=== PATIENT | male | born 1950 | race Caucasian/White ===

== ENCOUNTER → 2016-07-04 | Outpatient (CLI) | payer OTHER ==
[2016-07-04 12:33] LABS: BLOOD UREA NITROGEN 20 mg/dl (7-18); BUN/CREATININE RATIO 16.8 (10-20); CALCIUM 9.3 mg/dl (8.5-10.1); CARBON DIOXIDE 28 mmol/L (21-32); CHLORIDE 107 mmol/L (98-107); GLUCOSE 91 mg/dl (70-99); POTASSIUM 4.4 mmol/L (3.5-5.1); SODIUM 142 mmol/L (136-145)
[2016-07-04 12:36] LABS: CHOLESTEROL 163 mg/dl (0-200); HDL CHOLESTEROL 54 mg/dl; LDL CHOLESTEROL CALCULATED 99 mg/dl; TRIGLYCERIDES 49 mg/dl (0-150); VERY LOW DENSITY LIPOPROT CALC 10 mg/dl
== END | disposition home or self-care (01) ==
LOC: C.LABBC 09:23
PROVIDERS: ATTEND Internal Medicine
DX: Z13.220 Encounter for screening for lipoid disorders (principal)

== ENCOUNTER → 2017-06-11 | Outpatient (CLI) | payer OTHER, MEDICARE ==
[2017-06-11 09:42] LABS: BLOOD UREA NITROGEN 18 mg/dl (7-18); CALCIUM 9.5 mg/dl (8.5-10.1); CARBON DIOXIDE 29 mmol/L (21-32); CREATININE 1.02 mg/dl (0.60-1.40); GLUCOSE 89 mg/dl (70-99); POTASSIUM 3.9 mmol/L (3.5-5.1); SODIUM 139 mmol/L (136-145)
[2017-06-11 09:47] LABS: CHOLESTEROL 178 mg/dl (0-200); LDL CHOLESTEROL CALCULATED 111 mg/dl
== END | disposition home or self-care (01) ==
LOC: C.LAB1850 07:47
PROVIDERS: ATTEND Internal Medicine
DX: Z13.1 Encounter for screening for diabetes mellitus (principal); Z12.5 Encounter for screening for malignant neoplasm of prostate; Z13.220 Encounter for screening for lipoid disorders

== ENCOUNTER 2022-03-25 08:10 | Observation (INO) ==
--- NOTE | 2022-03-11 14:19 | Anesthesiology Consultation ---
Date of Service March 11, 2022 Assessment & Plan (1) Encounter for pre-operative examination: Chart Review Chart Review: Acceptable Risk for Surgery and Patient seen in Pre Admission Testing Discussed with Dr. Pritchard. Pt currently scheduled as 23 hours observation. If surgeon decides to change patient to [facility], patient would be acceptable risk for TKA, pending patient is motivated, has good support and surgeon's office completes [facility] preop requirements. Per PAT appt on 03/11/22, patient denies any recent travel or large group activities. Pt is vaccinated for Covid. Will leave to surgeon's discretion if preop Covid testing needed. Educated on importance of using Covid precautions one week prior to surgery Patient seen by neurology 01/17/2022 = patient seen for concerns for Parkinson's disease. Patient is mildly bradykinetic hypophonic on examination and does have very mild rigidity. 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 At this point I do have some clinical suspicion for development of parkinsonian syndrome based on reported symptoms and subtle examination findings. Unable to provide a more specific diagnosis at this timehowever recommend brain MRI to rule out pressure hydrocephalus and evaluate for perhaps a more specific atrophy pattern that may be helpful diagnostically. No medications prescribed. Doubtful he has myasthenia gravis, ALS or cardiomyopathy. Follow-up in 6 months Teaching & Discussion Pre-Anesthesia Teaching/Discussion Notes: Instructed NPO after midnight before surgery,except medications with 15 cc of water. Medication instructions provided according to the PAT guidelines. History Surgery Operation Date: 03/25/22 10:40 Proposed Procedures p Right Total Knee Arthroplasty - Luis Sams MD Height/Weight Height: 6 ft Weight: 84.6 kg Allergies Allergy/AdvReac Type Severity Reaction Status Date / Time No Known Allergies Allergy Verified 03/05/22 09:52 Medications Home Medications Medication Instructions Recorded Confirmed Last Taken No Known Home Medications 08/20/21 03/05/22 Unknown Past Medical History Medical History Parkinsonism Last seen by neuro 12/2021- mild bradykinesia, hypophonia and very mild rigidity - follow up six months Sensorineural hearing loss of both ears No hearing aids Exercise / Class Metabolic Activity II 4-5 Yardwork/Stairs/Walk up hill (one flight of stairs - no chest pain or SOB) Past Family History Family History Mother Myocardial infarction Hypertension Coronary heart disease Dyslipidemia Obesity Father Alzheimer disease Grandfather (Maternal) Coronary heart disease Denies family history of Ovarian cancer Prostate cancer Breast cancer Lung cancer Colorectal cancer Stroke Past Surgical History Surgical History H/O hand surgery RIGHT H/O knee surgery LEFT H/O vasectomy History of colonoscopy History of oral surgery Hx of tonsillectomy Past Anesthesia History No Hx of Anesthesia Complications and No Family Hx of Anesthesia Complications History of PONV No Hx of PONV and No Hx of Motion Sickness Social History Smoking Status: Never smoker Do You Dip or Chew Tobacco: No Hx Alcohol Use: Yes Alcohol type: beer alcohol intake frequency: a few times a month Hx Substance Use: No substance use type: does not use Review of Systems Patient denies chest pain, shortness of breath, dyspnea on exertion, reflux, cough, wheezing, palpitations. No hx of seizures, stroke, [place], apnea/snoring. No hx of blood clots or blood transfusions Physical Exam Vital Signs VITALS BP 162/92 (pt states usually blood pressure well controlled- usually 120s/80s) P 56 TEMP 97.9 SP02 99% RESP 16 Constitutional no acute distress ENMT Mouth: no TMJ clicking Thyromental Distance: > or= 3.5 Finger Breadths (3.5) Mallampati Class: II Caps to top front teeth and to molar Neck + limited neck extension (mild) Respiratory normal respiratory effort; no respiratory distress Auscultation: lungs clear to auscultation bilaterally; no wheezes Cardiovascular Rate/Rhythm: regular rate and regular rhythm Heart Sounds: no murmur Vessels: no carotid bruit Musculoskeletal Spine: no pain with cervical ROM Extremities: extremities normal to inspection Psychiatric Orientation: alert Lab Results Anesthesia Preop Results Results Anesthesia Widget: WBC 5.48 K/ul (4.8-10.8) 03/11/22 Hgb 13.4 g/dl (14.0-18.0) L 03/11/22 Hct 40.7 % (40.1-51.0) 03/11/22 Plt 266 K/uL (130-400) 03/11/22 Na 140 mmol/L (136-145) 03/11/22 K 4.4 mmol/L (3.5-5.1) 03/11/22 Cl 108 mmol/L (98-107) H 03/11/22 CO2 28 mmol/L (21-32) 03/11/22 BUN 24 mg/dl (6-23) H 03/11/22 Creat 0.99 mg/dl (0.6-1.4) 03/11/22 Glucose Level 83 mg/dl (70-99(Fasting)) 03/11/22 PT 10.7 Seconds (9.0-12.0) 03/11/22 PTT 25.3 Seconds (21.0-31.0) 03/11/22 INR 1.0 (0.9-1.1) 03/11/22 Blood Type O Negative 03/11/22 Antibody Screen NEGATIVE 03/11/22 Testing Electrocardiogram Date: 03/11/22 Findings: + SB @ (53bpm ) LVH with repolarization abnormality Chest X-Ray Date: 03/11/22 Findings: + NAD Stress Test Date: 11/28/20 Type: exercise (ECHO ) Resting EF: 60% Resting LV Function: normal Resting RWMA: + none Negative exercise stress echocardiogram and EKG for ischemia at 76% MPHR. 13.7 METS achieved Normal BP response with exercise. No significant ectopy at rest and with exercise Resting echomild LVH. Mild left atrial dilation. Mild MR. Other Testing Brain MRI 02/24/22= No acute abnormality COVID-19 Risk Screen Screening Information COVID-19 Screen Date: 03/11/22 Exposure 21 Days Family/Household +COVID Last 21 Days: No Exposure 10 Days Any COVID Exposure Last 10 Days: No Symptoms Last 10 Days Experienced COVID Sx Last 10 Days: No + COVID 0-90 Days COVID + in Last 0-90 Days: No Risk Plan COVID Risk Plan: No Risk Identified Patient Education COVID Preop Screening Education Complete: Yes
[~2022-03-25 08:10] MED LIST: ACETAMINOPHEN 500 MG TAB PO SCH; BUPIVACAINE 0.25% 30 ML VIAL ONE; BUPIVACAINE 0.5 % 5 MG/1 ML PF 10ML VIAL ONE; BUPIVACAINE LIPOSOME/PF 266 MG, BUPIVACAINE/EPINEPHRINE 50 ML, SODIUM CHLORIDE 0.9% 30 ... INFIL SCH; CeleBREX 200 MG CAP PO SCH; DEXAMETHASONE SOD INJ 4 MG/ML VIAL ONE; EPINEPHrine INJ 1 MG/ML AMP ONE; FAMOTIDINE 20 MG TAB PO SCH; LR 500ML BOLUS, THEN 15ML/HR IV SCH; METOCLOPRAMIDE HCL 10 MG TABLET PO SCH; TRANEXAMIC ACID 1,000 MG **IV Intra-op IV SCH; ceFAZolin 2000MG 2,000 MG/15 ML SYR IV SCH
[2022-03-25] MEDS: LR 60ML/HR IV SCH ×2 (08:28→08:53)
--- NOTE | 2022-03-25 08:50 | History & Physical Bridge Note ---
Date of Service March 25, 2022 History & Physical Bridge Note I have examined the patient, reviewed the History & Physical and in the interval since the performance of the History & Physical I have noted the following changes of clinical significance: no changes noted
[2022-03-25] MEDS ORDERED: MIDAZOLAM HCL 1 MG/ML 2ML VIAL ONE (09:46)
[2022-03-25] MEDS ORDERED: fentaNYL citrate 100 MCG/2 ML VIAL ONE (09:46)
[2022-03-25] MEDS ORDERED: WATER, STERILE FOR INJ 10 ML VIAL ONE (09:47)
[2022-03-25] MEDS ORDERED: PHENYLEPHRINE HCL 10 MG/ML VIAL ONE (09:47)
[2022-03-25] MEDS ORDERED: ePHEDrine sulfate 50 MG/ML AMP ONE (09:47)
[2022-03-25] MEDS ORDERED: BUPIVACAINE/EPINEPHRINE 0.25% 1:200,000 30 ML VIAL ONE (11:07)
[2022-03-25] MEDS ORDERED: BUPIVACAINE LIPOSOME 1.3% 266 MG/20 ML VIAL ONE (11:07)
[2022-03-25] MEDS ORDERED: SODIUM CHLORIDE 0.9% PF 50 ML VIAL ONE (11:07)
[2022-03-25] MEDS ORDERED: PROPOFOL IV EMULSION 10 MG/ML 20 ML VIAL IV ONE (11:09)
[2022-03-25] MEDS ORDERED: fentaNYL citrate 100 MCG/2 ML VIAL IV PRN (11:43)
[2022-03-25] MEDS ORDERED: ATROPINE SULFATE 0.1 MG/ML 10ML SYR IV PRN (11:43)
[2022-03-25] MEDS ORDERED: ePHEDrine sulfate 50 MG/ML AMP IV PRN (11:43)
[2022-03-25] MEDS ORDERED: ONDANSETRON INJ 2 MG/ML 2 ML VIAL IV PRN ×2 (11:43→15:24)
--- NOTE | 2022-03-25 13:09 | Operative Report ---
PG Post Operative Report Pre & Post Diagnosis Operation Date: 03/25/22 10:40 Pre-Op Diagnosis: Right Knee Advanced Degenerative Joint Disease Post-Op Diagnosis: Right Knee Advanced Degenerative Joint Disease I identified the patient and participated in the time-out.: Yes Procedure Operation Date: 03/25/22 10:40 Actual Procedures p Right Total Knee Arthroplasty(Right) - Luis Sams MD Surgeon Luis Sams MD Wet Milling Wheel Operator Kenroy Palmer PA-C Estimated Blood Loss 50 Findings Consistent with Post-Op Diagnosis Operative findings were advanced right knee DJD. It grade 4 [id number]-vw-[id number] disease the medial compartment. He had some focal grade 4 changes of the patellofemoral compartment. The lateral compartment pretty well spared. Fixed varus deformity to his knee. Moderate-sized knee joint effusion. A significant Case's cyst as well as a intraosseous ganglion over his ACL. Specimens Right knee sent for pathology. Drains None Anesthesia Type Spinal MAC Complications none Disposition Accompanied Patient To Recovery: No Indications Patient 72-year-old fairly healthy gentleman has had a long history of a bilateral knee pain discomfort right side a bit worse than the left. Been to extensive conservative treatment past which became less successful. X-ray showed advanced right knee arthritis. He elected proceed with surgical treatment. Description of Procedure Operative implants consist of: 1 Biomet Vanguard size 72.5 right posterior stabilized femoral component. 2. Biomet size 75 tibial tray. 3. 12 mm posterior stabilized polyethylene insert. 4. 34 x 8 and half all Paller patella. The patient was taken the operating, identified, placed on the operating table supine position but all contact areas were properly padded. IV antibiotics tried by anesthesia team. A spinal anesthetic and abductor canal block had provided in the holding area. Isaacs catheter was placed in sterile fashion for right Tetrick was then placed in the right lower extremities and prepped and draped in usual sterile fashion. Right leg was elevated exsanguinated with use of an Esmarch and the tourniquet was set at 300 mmHg. An anterior approach of the right knee was then performed to longitudinal incision centered over the patella. Sharp dissection was carried through subcutaneous tissue down to the extensor mechanism. A medial parapatellar arthrotomy incision was made. Some subperiosteal dissection was carried out medially. The fat pad was resected from Neath patella tendon. Lateral patellofemoral ligament was released. Patella subluxated laterally and the knee was flexed. The osteophyte taken off distal femur P the ACL and PCL were then released from distal femur the tibia subluxated anteriorly. External tibial alignment jig was then placed in the interface the tibia and adjusted 14 mm medially. Proximal tibial cut was made to remove about 2 mm bone from most deficient aspect medial tibial plateau. Some osteophytes taken off medial and posterior medially. The tibia sized to a size 75. Attention drawn the femur. The distal femur stem with a sharp drop with intramedullary canal was suction. A right 6 degree valgus cutting guide was placed. Distal femoral cutting block was pinned in place. Distal femoral cut was made to take an additional 3 mm of bone off distal femur. The femur was then sized to a size 72.5. We did downsize this slightly. The AP cutting block was pinned parallel to the epicondylar axis which was 3 degrees of external rotation. Anterior cut, anterior chamfer, posterior cut, posterior chamfer cuts were made. The box cutting guide was placed in a just slight laterally. The box cut was made. The knee was flexed. The remnants of the medial lateral menisci were excised. The osteophytes were taken off the posterior aspect of femur. A trial femoral component was placed. The tibial tray was pinned in maximum external rotation and the drill and stem punch used to create defect in proximal tibia for the tibial tray. Knee was then trialed and the 12 mm insert fit most appropriately. Attention drawn the patella. The patella was cleaned of all soft tissues. Patella thickness measured 22 mm in thickness cut down to 14. Was sized to a size 34 patella. The lug holes were drilled for the 34 patella. The lateral osteophytes removed. Patella button was placed. Knee was taken through range of motion and the patella tracked nicely with no thumbs test. Attention drawn to place the permanent components. All trial components were removed. Bone plug was placed in the distal femur limit low blood loss. A double batch Palacos G cement was mixed. A Biomet Vanguard size 72.5 right posterior stabilized femoral component, size 75 tibial tray, a 12 mm posterior stabilized polyethylene insert, and a 34 x 8 and half all Paller patella then cemented in place. New spreadout into full extension total cement hardened. Final cement check was then performed. Pericapsular tissues were injected with total 100 cc of combination of 20 cc of Exparel, 30 cc normal saline, 50 cc of quarter percent Marcaine with epinephrine. Patient did receive 1 g tranexamic acid per the tech was let down for final turn time 52 minutes. Hemostasis reduced electrocautery. Extensor mechanism closed with combination 1 PDS suture #1 Vicryl suture in a [id number] fashion with extensor mechanism checked found to be intact and subcutaneous tissue then closed with 2 Dexon suture in a buried interrupted fashion skin was closed skin wade. Leg was then cleaned and dried a sterile dressing was Xeroform, 4 x 4's, sterile cast padding, Aashish bandage applied. Patient then transferred to the recovery room in stable condition. Patient tolerated the procedure well and there were no complications. Kenroy Palmer, my physician him assistant, was present for the entire procedure. His assistance was essential and required for appropriate patient positioning, prepping and draping, surgical exposure, performing the technical details of the operation, placement the implants, closure of the wound, and placement of the sterile bandage. I attest to the content of the Intraoperative Record and any orders documented therein. Any exceptions are noted below.
--- NOTE | 2022-03-25 13:32 | XRay Report ---
XR knee RT 1 or 2V routine HISTORY: 72 years-old Male Surgical Post Op right knee total joint arthroplasty COMPARISON: 07/16/2018 TECHNIQUE: 2 views of the right knee FINDINGS: Right knee total joint arthroplasty with patellar resurfacing. Anterior midline skin wade are note d along with expected postoperative soft tissue swelling with deep tissue air. Arterial calcification s. No acute fracture or unexpected opaque foreign body identified. IMPRESSION: Total joint arthroplasty and patella resurfacing with expected postoperative changes. ACT 112: Negative or not required by law. The above report was generated using voice recognition software. It may contain grammatical, syntax o r spelling errors. Electronically signed by: Melvin Daniel M.D. 03/25/2022 1:30 PM
--- NOTE | 2022-03-25 13:35 | Anesthesiology Progress Note ---
Date of Service March 25, 2022 Anesthesia Post Procedure Vital Signs Vital Signs: Temp Pulse Pulse Resp BP Pulse Ox O2 Del Method 03/25/22 13:25 59 L 21 141/83 H 100 Oxymask 03/25/22 13:15 55 L 15 135/75 100 Oxymask 03/25/22 13:09 36.6 C 60 19 130/73 97 Oxymask 03/25/22 08:43 36.5 C 85 20 147/99 H 99 Room Air O2 Flow Rate 03/25/22 13:25 2 03/25/22 13:15 5 03/25/22 13:09 5 03/25/22 08:43 Transfer of Care Handoff Completed per policy Notes Mental Status: alert / awake / arousable Patient Amnestic to Procedure: Yes Nausea / Vomiting: adequately controlled Pain: adequately controlled Airway Patency, RR, SpO2: stable & adequate BP & HR: stable & adequate Hydration State: stable & adequate Neuraxial Anesthesia: was administered and sensory block is resolving Anesthetic Complications: no major complications apparent and Pt Satisfied with anesthetic care
[2022-03-25] MEDS ORDERED: HYDROmorphone INJ 0.5 MG/0.5 ML SYR IV PRN (15:24)
[2022-03-25] MEDS ORDERED: bisacodyL 10 MG SUPP PR PRN (15:24)
[2022-03-25] MEDS ORDERED: MAGNESIUM HYDROXIDE SUSP 30 ML UDC PO PRN (15:24)
[2022-03-25] MEDS ORDERED: NALOXONE HCL 0.4 MG/1 ML VIAL/CARP IV PRN (15:24)
[2022-03-25] MEDS ORDERED: ALUMINUM/MAGNESIUM SUSP 30 ML UDC PO PRN (15:24)
[2022-03-25] MEDS ORDERED: METOCLOPRAMIDE HCL INJ 5 MG/ML 2 ML VIAL IV PRN (15:24)
[2022-03-25] MEDS: SODIUM CHLORIDE 0.9% 1000ML 1,000 ML IV SCH (15:34)
[2022-03-25] MEDS: KETOROLAC TROMETHAMINE 15 MG/ML VIAL IV SCH ×2 (15:42→20:53)
[2022-03-25] MEDS: ACETAMINOPHEN 500 MG TAB PO SCH ×2 (15:42→21:36)
[2022-03-25] MEDS: ASCORBIC ACID 500 MG TAB PO SCH (17:03)
[2022-03-25] MEDS: oxyCODONE HCL IR 5 MG TAB (IMMEDIATE RELEASE) PO PRN (17:15)
--- NOTE | 2022-03-25 18:18 | Progress Notes ---
DATE OF SERVICE: 03/25/2022. SUBJECTIVE: A 72-year-old gentleman postoperative from a right knee replacement. He is doing pretty well. Not having too much pain yet. Says it is just sore. No chest pain or shortness of breath. Not feeling dizzy or lightheaded. OBJECTIVE: VITAL SIGNS: Temperature 36.4. Vital signs are stable, a little hypertensive at 169/91. PHYSICAL EXAMINATION: GENERAL: Shows a pleasant middle-aged male. He is sitting up in bed, looks comfortable. LUNGS: Clear to auscultation. HEART: Regular rate and rhythm. ABDOMEN: Soft, nontender, nondistended. EXTREMITIES: Grossly neurovascularly intact except as follows: Examination of the right knee reveal s the leg to be well aligned. Dressing is clean, dry and intact. He can dorsiflex and plantarflex h is foot appropriately. He is neurologically intact. X-RAYS: X-rays of the right knee from recovery room are reviewed. It shows a right cemented posteri or stabilized total knee replacement. Components looked to be in acceptable position. The AP film i s fairly rotated. No signs of problems. ASSESSMENT: A 72-year-old gentleman postoperative from a right knee replacement, doing well. Pain i s controlled currently. He is neurologically intact. PLAN: 1. DVT prophylaxis includes thigh-high TEDs, SCDs, and aspirin twice a day. 2. PT/OT, weightbear as tolerated. Right total knee protocol. 3. Pain control, doing okay with current pain regimen. 4. IV antibiotics x24 hours. 5. Disposition: Plan to discharge to home with some home health and once adequately recovered and m edically stable. Job ID: [id number]
[2022-03-25] MEDS ORDERED: TRANEXAMIC ACID / 0.7% NACL 1,000 MG/100 ML BAG IV SCH (19:15)
[2022-03-25] MEDS: ceFAZolin 2000MG 2,000 MG/15 ML SYR IV SCH (19:30)
[2022-03-25] MEDS: DOCUSATE SODIUM/SENNA 50/8.6MG TAB PO SCH (20:52)
[2022-03-25] MEDS: DOCUSATE SODIUM 100 MG CAP PO SCH (20:52)
[2022-03-25] MEDS: ASPIRIN 81 MG ECTAB PO SCH (20:52)
[2022-03-25] MEDS ORDERED: SENNA 8.6 MG TAB PO SCH (21:00)
[2022-03-26] MEDS: SODIUM CHLORIDE 0.9% 1000ML 1,000 ML IV SCH (02:07)
[2022-03-26] MEDS: oxyCODONE HCL IR 5 MG TAB (IMMEDIATE RELEASE) PO PRN (02:32)
[2022-03-26] MEDS: KETOROLAC TROMETHAMINE 15 MG/ML VIAL IV SCH ×2 (02:33→09:30)
[2022-03-26] MEDS: ceFAZolin 2000MG 2,000 MG/15 ML SYR IV SCH (02:33)
[2022-03-26] MEDS: ACETAMINOPHEN 500 MG TAB PO SCH (05:17)
[2022-03-26] MEDS: ASCORBIC ACID 500 MG TAB PO SCH (07:22)
[2022-03-26] MEDS: DOCUSATE SODIUM/SENNA 50/8.6MG TAB PO SCH (07:23)
[2022-03-26] MEDS: ASPIRIN 81 MG ECTAB PO SCH (07:23)
[2022-03-26] MEDS: DOCUSATE SODIUM 100 MG CAP PO SCH (07:23)
[2022-03-26] MEDS ORDERED: dexAMETHasone 10 MG in SYRINGE 0 ML IV SCH (08:00)
[2022-03-26 08:07] LABS: Hematocrit (blood only) 37.2 % (40.1-51.0); Hemoglobin 12.6 g/dl (14.0-18.0); Mean Corpuscular Hemoglobin 28.4 pg (25.0-34.0); Mean Corpuscular Hgb Conc 33.9 g/dL (32.0-36.0); Mean Platelet Volume 9.3 fL (9.4-12.4); Platelet Count 207 K/uL (130-400); RDW Coefficient of Variation 12.7 % (11.5-14.5); RDW Standard Deviation 38.5 fL (36.4-46.3); Red Blood Count 4.43 M/uL (4.63-6.08); White Blood Count 8.28 K/ul (4.8-10.8)
[2022-03-26] MEDS ORDERED: TAMSULOSIN HCL 0.4 MG CAP PO SCH (09:00)
[2022-03-26] MEDS ORDERED: MULTIVITAMIN TAB PO SCH (09:00)
[2022-03-26 09:01] LABS: BUN Creatinine Ratio 19.6 (10-20); Est GFR (African American) 97.3 ml/min; Potassium 4.1 mmol/L (3.5-5.1)
--- NOTE | 2022-03-26 11:28 | Progress Notes ---
DATE OF SERVICE: 03/26/2022. SUBJECTIVE: A 72-year-old gentleman postoperative day 1 from a right knee replacement. He is doing pretty well. Some moderate pain, but very manageable. Hoping to go home. No chest pain or shortnes s of breath. Not feeling dizzy or lightheaded. OBJECTIVE: VITAL SIGNS: Temperature 37.1. Vital signs are stable. Blood pressure is a little bit elevated. GENERAL: Shows a pleasant middle-aged male. He is sitting up in his bedside chair, looks pretty com fortable. EXTREMITIES: Examination of the right knee reveals the dressing to be clean, dry and intact. He can do a straight leg raise. Bends from 0-90 degrees without much difficulty. He can dorsiflex and edwin ntarflex his foot appropriately. He is neurologically intact. LABORATORY DATA: Hemoglobin 12.6. Hematocrit 37.2. Electrolytes are normal. ASSESSMENT: A 72-year-old gentleman postoperative day 1 from right knee replacement, doing pretty we ll. He is a little bit hypertensive, but otherwise doing well. Asymptomatic. PLAN: 1. DVT prophylaxis includes thigh-high TEDs, SCDs, and aspirin twice a day. 2. PT, OT, weightbear as tolerated. Right total knee protocol. 3. Pain control, doing okay with current pain regimen. 4. Hypertension. We will check his medication list and make sure he is back on his normal meds. 5. Disposition: He is planning to be discharged to home with some home health. He is hoping to go home today. We will see how he does in therapy. Job ID: [id number]
--- NOTE | 2022-03-30 07:43 | Discharge Summary ---
Date of Service March 30, 2022 Discharge Data Procedures Performed Operation Date: 03/25/22 10:40 Actual Procedures p Right Total Knee Arthroplasty(Right) - Luis Sams MD Hospital Course (1) Status post total right knee replacement: This is a 72 year old patient admitted on 03/25/22 and underwent total knee arthroplasty. He tolerated the procedure well and there were no complications. Transferred to the PACU post op and later to the orthopedic floor for further care. He was given ancef for antibiotic prophylaxis. He was also given TOMMIE stockings, SCDs, and aspirin for DVT prophylaxis. Hemoglobin, hematocrit, and vital signs were monitored during his hospital stay and remained stable. Did not require any blood transfusions. There were no complications during his hospital stay. By post op day #1 the patient was tolerating a regular diet, pain was reasonably controlled with oral pain medicine, and he was participating in physical therapy. On post op day #1 the patient was discharged home and set up with home health care. He was given printed discharge instructions including prescriptions for extra strength tylenol, aspirin, ketorolac, zofran, senokot, flomax, and oxycodone. Continue physical therapy, weight bearing as tolerated. Continue TMOMIE stockings. Follow up approximately 2 weeks post op or sooner if there are problems or concerns. Coding Level of Care Code None Diagnoses Status post total right knee replacement Z96.651
== END 2022-03-26 11:34 | disposition home health service (06) ==
LOC: ASU 08:10 → 3E 08:10
DX: M21.161 Varus deformity, not elsewhere classified, right knee; Z79.82 Long term (current) use of aspirin; I10 Essential (primary) hypertension; Z79.899 Other long term (current) drug therapy; M17.11 Unilateral primary osteoarthritis, right knee; Z20.822 Contact with and (suspected) exposure to COVID-19